=== PATIENT | male | born 1980 | race Caucasian/White ===

== ENCOUNTER 2024-02-05 03:28 | Emergency (ER) | payer OTHER ==
[~2024-02-05] VITALS: Ht 193 cm; Wt 117.9 kg
[2024-02-05] MEDS ORDERED: HYDROmorphone HCl/Pf 1MG SYR ONE (03:37)
[2024-02-05] MEDS ORDERED: Ondansetron HCl 2 MG / ML 2ML Vial ONE (03:38)
[2024-02-05] MEDS ORDERED: Ondansetron HCl 2 MG / ML 2ML Vial IV ONE (03:45)
[2024-02-05] MEDS ORDERED: HYDROmorphone HCl/Pf 1MG SYR IV ONE ×3 (03:45→05:55)
[2024-02-05 04:14] LABS: BASOPHILS ABSOLUTE AUTO 0.02 K/mm3 (0.00-0.23); BASOPHILS PERCENT AUTO 0 % (0-2); EOSINOPHILS ABSOLUTE AUTO 0.02 K/mm3 (0.00-0.68); EOSINOPHILS PERCENT AUTO 0 % (0-6); Hematocrit 36.1 % (37.0-53.0); Hemoglobin 13.3 g/dL (13.5-17.5); IMMATURE GRAN ABSOLUTE AUTO 0.12 K/mm3 (0.00-0.10); IMMATURE GRAN PERCENT AUTO 1 % (0-1); LYMPHOCYTES ABSOLUTE AUTO 0.78 K/mm3 (0.84-5.20); LYMPHOCYTES PERCENT AUTO 6 % (21-46); MONOCYTES PERCENT AUTO 5 % (4-13); Mean Corpuscular HGB 31.6 pg (26.0-34.0); Mean Corpuscular HGB Conc 36.8 g/dL (31.5-36.5); Mean Corpuscular Volume 86 fL (80-100); Mean Platelet Volume 9.6 fL (9.1-12.4); NEUTROPHILS ABSOLUTE AUTO 11.01 K/mm3 (1.96-9.15); NEUTROPHILS PERCENT AUTO 88 % (41-73); Platelet Count 178 K/mm3 (150-400); RDW Coefficient Variation 12.5 % (11.7-14.2); RDW Standard Deviation 38.7 fL (35.1-46.3); Red Blood Cell Count 4.21 M/mm3 (4.30-5.90); White Blood Cell Count 12.55 K/mm3 (4.00-11.30)
[2024-02-05 04:27] LABS: Alanine Aminotransfer (ALT/SGP 46 U/L (12-78); Albumin, Blood 3.5 g/dL (3.4-5.0); Albumin/Globulin Ratio 1.3 (0.8-1.8); Alk Phos 107 U/L (50-136); Anion Gap 10 mmol/L (3-11); Aspartate Aminotrans (AST/SGOT 45 U/L (12-37); Bilirubin, Total 1.2 mg/dL (0.1-1.0); Blood Urea Nitrogen 18 mg/dL (8-24); Bun/Creatinine Ratio 16.5 (12.0-20.0); CO2, Blood 23 mmol/L (21-32); Chloride, Blood 111 mmol/L (98-108); Creatinine, Blood 1.09 mg/dL (0.60-1.20); Ethanol (Alcohol), Blood, Med <3 mg/dL; Globulin, Blood 2.6 g/dL (2.2-4.0); Glomerular Filtration Rate 87 (60-); Glucose, Blood 177 mg/dL (70-99); Potassium, Blood 3.9 mmol/L (3.5-5.5); Sodium, Blood 140 mmol/L (136-145); Total Protein, Blood 6.1 g/dL (6.4-8.2)
[2024-02-05 04:32] LABS: International Normalized Ratio 1.07; Prothrombin Time Results 11.4 Sec (9.7-11.5)
== END 2024-02-05 06:40 | disposition short-term general hospital (02) ==
LOC: ER 03:28
PROVIDERS: Emergency Medicine
DX: S27.0XXA Traumatic pneumothorax, initial encounter (principal); S42.351A Displaced comminuted fracture of shaft of humerus, right arm, initial encounter for closed fracture; S42.102A Fracture of unspecified part of scapula, left shoulder, initial encounter for closed fracture; S22.41XA Multiple fractures of ribs, right side, initial encounter for closed fracture; S36.039A Unspecified laceration of spleen, initial encounter; S40.012A Contusion of left shoulder, initial encounter; S20.212A Contusion of left front wall of thorax, initial encounter; S00.412A Abrasion of left ear, initial encounter; V91.39XA Hit or struck by falling object due to accident to unspecified watercraft, initial encounter
CPT/HCPCS: 29105; 70450; 71045; 71260; 72125; 73060; 74177; 80053; 85025; 85610; 96374-59; 96375-59; 96376-59; 99285-25; J1170; J2405; Q9967